=== PATIENT | female | born 1980 | race Caucasian/White ===

== ENCOUNTER 2016-09-24 01:59 | Emergency (ER) | payer OTHER ==
[2016-09-24] MEDS ORDERED: ENOXAPARIN 60 MG/0.6 ML SYR SUBQ ONE (04:03)
== END 2016-09-24 04:53 | disposition home or self-care (01) ==
LOC: ER 01:59
DX: M79.662 Pain in left lower leg (principal); R30.0 Dysuria; J02.9 Acute pharyngitis, unspecified
CPT/HCPCS: 36415; 80053; 81001; 84703; 85025; 85379; 87880; 96372